=== PATIENT | male | born 1970 | race Caucasian/White ===

== ENCOUNTER 2022-04-28 18:02 | Emergency (ER) | payer OTHER, SELFPAY ==
--- NOTE | ~2022-04-28 | CT_ITS ---
EXAMINATION CTA CHEST, ABDOMEN AND PELVIS CLINICAL INFORMATION: Chest pain. Possible dissection. COMPARISON: None. TECHNIQUE: Multidetector volumetric CT imaging of the chest, abdomen and pelvis was obtained after the administration of 70 mL Omnipaque 350 without immediate adverse reactions. Coronal and sagittal reformats were reviewed. This CT examination was performed using dose optimization techniques as appropriate, variously including the following: *Automated exposure control *Adjustment of mA and/or kV according to patient size (this includes techniques or standardized protocols for targeted exams where dose is matched to indication/reason for exam; i.e. extremities or head) *Use of iterative reconstruction technique DLP: 756 mGy-cm FINDINGS: VASCULAR: Nongated exam. No thoracic or abdominal aortic aneurysm, or dissection. Ascending aorta measures 3.5 cm. Single bilateral renal arteries are patent. Celiac axis and its branches are patent. There is a dissection of the anterior superior mesenteric artery beginning approximately 8 mm from its origin, and extending over length of 4.2 cm, ending at the origin of the middle colic artery which remains patent. Jejunal branches to the small bowel ileocolic branches remain patent. Inferior mesenteric artery patent. Iliac and femoral vessels are patent. The exam was not timed for evaluation of the pulmonary arteries, however pulmonary embolism can be safely excluded as well. NONVASCULAR: CHEST: No acute pulmonary parenchymal abnormalities. Scattered calcified granulomata. No pleural effusion or pneumothorax. Normal heart size. No pericardial effusion. No mediastinal or hilar lymphadenopathy. Normal thyroid gland. Chest wall and axilla unremarkable. ABDOMEN/PELVIS: Liver, biliary tree, pancreas, spleen, and adrenal glands are normal. Kidneys enhance symmetrically. No hydronephrosis. There are bilateral simple renal cysts are benign. No follow-up required. Mild prostatomegaly. Seminal vesicles unremarkable. Pancolonic diverticulosis. No evidence of diverticulitis. Stomach and small bowel unremarkable. No lymphadenopathy. No free fluid/ascites. MUSCULOSKELETAL: No acute or suspicious osseous abnormalities. CT/CT angio abdomen pelvis IMPRESSION: * No aortic aneurysm or dissection. 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 No branch vessel occlusion.
[2022-04-28 18:10] VITALS: BP 151/112; PULSE 90; RESP 20; TEMP 36.7; O2SAT 98; BMI 27.1
--- NOTE | 2022-04-28 18:10 | ED_ITS ---
HPI - General Adult General Chief complaint: Abdominal Pain Stated complaint: Abdominal pain, back pain Time Seen by Provider: 04/28/22 18:28 Source: patient Mode of arrival: ambulatory Limitations: no limitations Related Data Allergies Allergy/AdvReac Type Severity Reaction Status Date / Time No Known Allergies Allergy Verified 04/28/22 18:10 [facility] Social History Social History Smoked in Last 30 Days: No Use of substances other than those prescribed or required for medical reasons: No Advance Directives: No Advance Directives Information Provided: No Physical Exam ED Vital Signs: Vital Signs - 24 hr 04/28/22 18:10 04/28/22 19:13 04/28/22 21:54 Temperature 98.0 F 97.9 F 97.8 F Pulse Rate 90 72 73 Respiratory Rate 20 24 H 11 L Blood Pressure 151/112 H 138/88 153/103 H Pulse Oximetry 98 99 98 Oxygen Delivery Method Room Air Room Air Room Air 04/28/22 22:42 04/28/22 22:57 Temperature 97.7 F Pulse Rate 83 Respiratory Rate 24 H 24 H Blood Pressure 153/103 H Pulse Oximetry 97 Oxygen Delivery Method Room Air BMI result Body Mass Index 27.1 Course Course Course Narrative: RME performed by Therese Collado PA-C. Patient is a 51 year old male presenting to the emergency department with sudden onset and severe epigastric pain radiating to his back. Patient states that he has a history of high blood pressure of which he is on multiple medications. Patient states the pain is getting worse and radiating into his back. Concern for dissection. CBC, CMP, PT, PTT, CTA chest and abd ordered. Patient brought back to the department. Patient acuity explained to the charge nurse. Patient seen and transferred to [facility] by Dr. Cantu Medications Administered Discontinued Medications Generic Name Dose Route Start Last Admin Trade Name Freq PRN Reason Stop Dose Admin Hydromorphone HCl 0.5 mg 04/28/22 18:59 04/28/22 19:09 Hydromorphone Hcl 0.5 Mg/0.5 Ml Syringe IVPUSH 04/28/22 19:00 0.5 mg ONCE ONE Administration Protocol Hydromorphone HCl 0.5 mg 04/28/22 20:37 04/28/22 20:49 Hydromorphone Hcl 0.5 Mg/0.5 Ml Syringe IVPUSH 04/28/22 20:38 0.5 mg ONCE ONE Administration Protocol Hydromorphone HCl 0.5 mg 04/28/22 22:36 04/28/22 22:42 Hydromorphone Hcl 0.5 Mg/0.5 Ml Syringe IVPUSH 04/28/22 22:37 0.5 mg ONCE ONE Administration Protocol Iohexol 100 ml 04/28/22 18:53 04/28/22 18:55 Iohexol 350 Mg/Ml 100 Ml Infus..Btl IV 04/28/22 18:54 100 ml ONCE ONE Administration Medical Decision Making Lab Data Result diagrams: 04/28/22 20:02 04/28/22 20:02 Labs: Lab Results 04/28/22 04/28/22 04/28/22 Range/Units 20:02 20:02 20:02 WBC 8.2 (4.8-10.8) X10*3/uL RBC 5.35 (4.60-5.80) X10*6/uL Hgb 15.4 (14.0-18.0) g/dl Hct 43.5 (42.0-52.0) % MCV 81.3 (80.0-98.0) fL MCH 28.8 (27.0-33.0) pg MCHC 35.4 (31.0-36.0) g/dl RDW 13.9 (11.0-16.0) % Plt Count 212 (160-400) X10*3/uL MPV 9.5 (9.4-12.4) fL Immature Gran % (Auto) 0.2 (0.0-0.4) % Neut % (Auto) 74.6 H (45-73) % Lymph % (Auto) 17.8 L (20-40) % [place] % (Auto) 5.1 (2-11) % Eos % (Auto) 1.8 (0-4) % Baso % (Auto) 0.5 (0-2) % Lymph # (Auto) 1.5 (1.2-4.9) X10*3/uL [place] # (Auto) 0.4 (0.1-1.2) X10*3/uL Eos # (Auto) 0.2 (0.0-0.4) X10*3/uL Baso # (Auto) 0.0 (0.0-0.2) X10*3/uL Abs Immat Gran (auto) 0.02 (0.00-0.03) X10*3/uL Absolute Neuts (auto) 6.1 (2.0-8.3) x10*3/uL Absolute Nucleated RBC 0.000 (0.0-0.012) X10*3/uL Nucleated RBC % (auto) 0.0 (0.0-0.2) /100WBC PT (10.0-13.1) SEC INR (0.9-1.1) APTT (26.0-36.4) SEC Sodium 129 L (135-145) mmol/L Potassium 3.5 (3.3-5.1) mmol/L Chloride 100 (96-108) mmol/L Carbon Dioxide 18 L (22-29) mmol/L Anion Gap 15 (12-20) BUN 19 H (9-16) mg/dL Creatinine 0.97 (0.5-1.4) mg/dL Estim Creat Clear Calc 99.5 Estimated GFR > 60 Random Glucose 104 (60-115) mg/dL Lactic Acid (0.5-2.0) mmol/L Calcium 9.6 (8.4-10.2) mg/dL Magnesium 2.1 (1.6-2.6) mg/dL Total Bilirubin 2.0 H (0.0-1.0) mg/dL AST 21 (5-37) U/L ALT 21 (0-40) U/L Alkaline Phosphatase 52 (39-117) U/L Troponin I High Sens < 3.5 (<3.5-35.0) ng/L Total Protein 9.0 H (6.5-8.0) g/dL Albumin 4.2 (3.5-5.0) g/dL 04/28/22 04/28/22 Range/Units 20:02 22:39 WBC (4.8-10.8) X10*3/uL RBC (4.60-5.80) X10*6/uL Hgb (14.0-18.0) g/dl Hct (42.0-52.0) % MCV (80.0-98.0) fL MCH (27.0-33.0) pg MCHC (31.0-36.0) g/dl RDW (11.0-16.0) % Plt Count (160-400) X10*3/uL MPV (9.4-12.4) fL Immature Gran % (Auto) (0.0-0.4) % Neut % (Auto) (45-73) % Lymph % (Auto) (20-40) % [place] % (Auto) (2-11) % Eos % (Auto) (0-4) % Baso % (Auto) (0-2) % Lymph # (Auto) (1.2-4.9) X10*3/uL [place] # (Auto) (0.1-1.2) X10*3/uL Eos # (Auto) (0.0-0.4) X10*3/uL Baso # (Auto) (0.0-0.2) X10*3/uL Abs Immat Gran (auto) (0.00-0.03) X10*3/uL Absolute Neuts (auto) (2.0-8.3) x10*3/uL Absolute Nucleated RBC (0.0-0.012) X10*3/uL Nucleated RBC % (auto) (0.0-0.2) /100WBC PT 12.6 (10.0-13.1) SEC INR 1.1 (0.9-1.1) APTT 26.9 (26.0-36.4) SEC Sodium (135-145) mmol/L Potassium (3.3-5.1) mmol/L Chloride (96-108) mmol/L Carbon Dioxide (22-29) mmol/L Anion Gap (12-20) BUN (9-16) mg/dL Creatinine (0.5-1.4) mg/dL Estim Creat Clear Calc Estimated GFR Random Glucose (60-115) mg/dL Lactic Acid 1.0 (0.5-2.0) mmol/L Calcium (8.4-10.2) mg/dL Magnesium (1.6-2.6) mg/dL Total Bilirubin (0.0-1.0) mg/dL AST (5-37) U/L ALT (0-40) U/L Alkaline Phosphatase (39-117) U/L Troponin I High Sens (<3.5-35.0) ng/L Total Protein (6.5-8.0) g/dL Albumin (3.5-5.0) g/dL Discharge Plan Discharge 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
--- NOTE | 2022-04-28 18:11 | ECG_ITS ---
Test Reason : EPIGASTRIC PAIN Blood Pressure : / mmHG Vent. Rate : 071 BPM Atrial Rate : 071 BPM P-R Int : 174 ms QRS Dur : 086 ms QT Int : 432 ms P-R-T Axes : 036 005 051 degrees QTc Int : 469 ms Normal sinus rhythm Normal ECG No previous ECGs available Referred By: Therese Collado Electronically Signed By:Deshawn Murphy
[2022-04-28] MEDS: iohexoL 350 MG/ML 100 ML INFUS..BTL IV (18:55)
--- NOTE | 2022-04-28 19:01 | ED_ITS ---
HPI - Abdominal Pain General Chief Complaint: Abdominal Pain Stated Complaint: Abdominal pain, back pain Time Seen by Provider: 04/28/22 18:28 Source: patient Mode of arrival: ambulatory Limitations: no limitations History of Present Illness HPI narrative: Patient is a 51-year-old male with a history hypertension. No history smoking. Positive history of kidney stones in the past. Presented today with having ri ght-sided abdominal pain going to the back. The pain is 10/10. Very sudden abrupt in onset. No history of sudden in the family. No history of smoking. Patient did not try any medication. Is not changed with movement. No pain on urination no change in bowel movement patient is from home. No coughing or congestion no chest pain no diaphoresis. The pain is not related to food. It is sharp. Related Data Allergies Allergy/AdvReac Type Severity Reaction Status Date / Time No Known Allergies Allergy Verified 04/28/22 18:10 Review of Systems Review of Systems Positive right-sided abdominal No fever no chills Yes all other systems are reviewed and are negative PMFSH Past Medical History Attestation statement: The following information was validated with the patient. Social History Social History Smoked in Last 30 Days: No Use of substances other than those prescribed or required for medical reasons: No Advance Directives: No Advance Directives Information Provided: No Physical Exam ED Vital Signs: Vital Signs - 24 hr 04/28/22 18:10 04/28/22 19:13 04/28/22 21:54 Temperature 98.0 F 97.9 F 97.8 F Pulse Rate 90 72 73 Respiratory Rate 20 24 H 11 L Blood Pressure 151/112 H 138/88 153/103 H Pulse Oximetry 98 99 98 Oxygen Delivery Method Room Air Room Air Room Air BMI result Body Mass Index 27.1 Appearance: Alert. Oriented X3. No acute distress. Eyes: Pupils equal, round and reactive to light. ENT: Pharynx normal. Neck: Normal inspection. Neck supple. No lymph nodes noted. No crepitus CVS: Normal heart rate and rhythm. Pulses normal. Normal S1 and S2 Respiratory: No respiratory distress. Breath sounds normal. No Wheezing. No rales Abdomen: Soft and nontender. No rigidity. No distention. good BS x4 Skin: Skin warm and dry. Normal skin color. Normal skin turgor. Extremities: No lower extremity edema. Neurovascular intact to all extremities. No Lacerations. No Rash Neuro: Oriented X 3. No motor deficit. No sensory deficit. Moving all extermities. No slurred speech Medications Administered Discontinued Medications Generic Name Dose Route Start Last Admin Trade Name Pandaq PRN Reason Stop Dose Admin Hydromorphone HCl 0.5 mg 04/28/22 18:59 04/28/22 19:09 Hydromorphone Hcl 0.5 Mg/0.5 Ml Syringe IVPUSH 04/28/22 19:00 0.5 mg ONCE ONE Administration Protocol Hydromorphone HCl 0.5 mg 04/28/22 20:37 04/28/22 20:49 Hydromorphone Hcl 0.5 Mg/0.5 Ml Syringe IVPUSH 04/28/22 20:38 0.5 mg ONCE ONE Administration Protocol Iohexol 100 ml 04/28/22 18:53 04/28/22 18:55 Iohexol 350 Mg/Ml 100 Ml Infus..Btl IV 04/28/22 18:54 100 ml ONCE ONE Administration MDM - Abdominal Pain MDM Narrative Medical decision making narrative: 19:55 Patient had sudden onset of excruciating abdominal pain. 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 The finding was discussed with vascular surgery Dr. Witt. Suggested patient require transfer to a tertiary center. Contacted [facility]. Awaiting call back. Patient's blood pressure is controlled. At 21:00 there was no reply from [facility] yet. Attempted to contact you mass. No capacity to take care patient. Will attempt to contact [facility]. At 22:30 poly got a phone call back from [facility]. They will accept the patient at this point. Will transfer patient to the Emergency Department. Accepting physician . Did not want any heparin at this time. Currently patient is in guarded condition given additional doses of pain medication. Differential Diagnosis Differential diagnosis: Likely abdominal pain, aortic dissection, acute appendicitis, bowel perforation, calculus of kidney, constipation, diverticulitis, endometriosis, gastroenteritis, gastritis, mesenteric ischemia, pancreatitis, peptic ulcer disease, renal colic and small bowel obstruction Medical Records Attestation: I reviewed the patient's medical records. Lab Data Attestation: I reviewed the patient's lab results. Result diagrams: 04/28/22 20:02 04/28/22 20:02 Labs: Lab Results 04/28/22 04/28/22 04/28/22 Range/Units 20:02 20:02 20:02 WBC 8.2 (4.8-10.8) X10*3/uL RBC 5.35 (4.60-5.80) X10*6/uL Hgb 15.4 (14.0-18.0) g/dl Hct 43.5 (42.0-52.0) % MCV 81.3 (80.0-98.0) fL MCH 28.8 (27.0-33.0) pg MCHC 35.4 (31.0-36.0) g/dl RDW 13.9 (11.0-16.0) % Plt Count 212 (160-400) X10*3/uL MPV 9.5 (9.4-12.4) fL Immature Gran % (Auto) 0.2 (0.0-0.4) % Neut % (Auto) 74.6 H (45-73) % Lymph % (Auto) 17.8 L (20-40) % [place] % (Auto) 5.1 (2-11) % Eos % (Auto) 1.8 (0-4) % Baso % (Auto) 0.5 (0-2) % Lymph # (Auto) 1.5 (1.2-4.9) X10*3/uL [place] # (Auto) 0.4 (0.1-1.2) X10*3/uL Eos # (Auto) 0.2 (0.0-0.4) X10*3/uL Baso # (Auto) 0.0 (0.0-0.2) X10*3/uL Abs Immat Gran (auto) 0.02 (0.00-0.03) X10*3/uL Absolute Neuts (auto) 6.1 (2.0-8.3) x10*3/uL Absolute Nucleated RBC 0.000 (0.0-0.012) X10*3/uL Nucleated RBC % (auto) 0.0 (0.0-0.2) /100WBC PT (10.0-13.1) SEC INR (0.9-1.1) APTT (26.0-36.4) SEC Sodium 129 L (135-145) mmol/L Potassium 3.5 (3.3-5.1) mmol/L Chloride 100 (96-108) mmol/L Carbon Dioxide 18 L (22-29) mmol/L Anion Gap 15 (12-20) BUN 19 H (9-16) mg/dL Creatinine 0.97 (0.5-1.4) mg/dL Estim Creat Clear Calc 99.5 Estimated GFR > 60 Random Glucose 104 (60-115) mg/dL Calcium 9.6 (8.4-10.2) mg/dL Magnesium 2.1 (1.6-2.6) mg/dL Total Bilirubin 2.0 H (0.0-1.0) mg/dL AST 21 (5-37) U/L ALT 21 (0-40) U/L Alkaline Phosphatase 52 (39-117) U/L Troponin I High Sens < 3.5 (<3.5-35.0) ng/L Total Protein 9.0 H (6.5-8.0) g/dL Albumin 4.2 (3.5-5.0) g/dL 04/28/22 Range/Units 20:02 WBC (4.8-10.8) X10*3/uL RBC (4.60-5.80) X10*6/uL Hgb (14.0-18.0) g/dl Hct (42.0-52.0) % MCV (80.0-98.0) fL MCH (27.0-33.0) pg MCHC (31.0-36.0) g/dl RDW (11.0-16.0) % Plt Count (160-400) X10*3/uL MPV (9.4-12.4) fL Immature Gran % (Auto) (0.0-0.4) % Neut % (Auto) (45-73) % Lymph % (Auto) (20-40) % [place] % (Auto) (2-11) % Eos % (Auto) (0-4) % Baso % (Auto) (0-2) % Lymph # (Auto) (1.2-4.9) X10*3/uL [place] # (Auto) (0.1-1.2) X10*3/uL Eos # (Auto) (0.0-0.4) X10*3/uL Baso # (Auto) (0.0-0.2) X10*3/uL Abs Immat Gran (auto) (0.00-0.03) X10*3/uL Absolute Neuts (auto) (2.0-8.3) x10*3/uL Absolute Nucleated RBC (0.0-0.012) X10*3/uL Nucleated RBC % (auto) (0.0-0.2) /100WBC PT 12.6 (10.0-13.1) SEC INR 1.1 (0.9-1.1) APTT 26.9 (26.0-36.4) SEC Sodium (135-145) mmol/L Potassium (3.3-5.1) mmol/L Chloride (96-108) mmol/L Carbon Dioxide (22-29) mmol/L Anion Gap (12-20) BUN (9-16) mg/dL Creatinine (0.5-1.4) mg/dL Estim Creat Clear Calc Estimated GFR Random Glucose (60-115) mg/dL Calcium (8.4-10.2) mg/dL Magnesium (1.6-2.6) mg/dL Total Bilirubin (0.0-1.0) mg/dL AST (5-37) U/L ALT (0-40) U/L Alkaline Phosphatase (39-117) U/L Troponin I High Sens (<3.5-35.0) ng/L Total Protein (6.5-8.0) g/dL Albumin (3.5-5.0) g/dL Critical Care Time Critical Care Time Critical Care Time: Yes Total Critical Care Time: 75 Attestation: I have personally provided 70 minutes of critical care time exclusive of time spent on separately billable procedures. Time includes review of lab data, radiology results, discussion with consultants, and monitoring for potential decompensation. 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
[2022-04-28] MEDS: HYDROmorphone HCl 0.5 MG/0.5 ML SYRINGE IVPUSH ×3 (19:09→22:42)
[2022-04-28 19:13] VITALS: BP 138/88; PULSE 72; RESP 24; TEMP 36.6; O2SAT 99
--- NOTE | 2022-04-28 19:17 | PC.NURSE ---
Pt's V/S are stable, pt is a having excruciating pain in the lower right abd radiating in to middle of the abd. pt is diaphoretic and appear in stress. Pt abd is soft and tender. Pt was given pain meds, will continue to monitor.
--- NOTE | 2022-04-28 19:54 | PC.NURSE ---
Call out to [facility] transfer line @[phone]
[2022-04-28 20:07] LABS: MANUAL DIFF FLAG NO
[2022-04-28 20:17] LABS: Basophils Percent Auto 0.5 % (0-2); Eosinophils Absolute Auto 0.2 X10*3/uL (0.0-0.4); Eosinophils Percent Auto 1.8 % (0-4); Hematocrit 43.5 % (42.0-52.0); Hemoglobin 15.4 g/dl (14.0-18.0); Imm Gran Abs Auto 0.02 X10*3/uL (0.00-0.03); Imm Gran Pct Auto 0.2 % (0.0-0.4); Lymphocytes Absolute Auto 1.5 X10*3/uL (1.2-4.9); Lymphocytes Percent Auto 17.8 % (20-40); Mean Corpuscular HGB Conc 35.4 g/dl (31.0-36.0); Mean Corpuscular Hemoglobin 28.8 pg (27.0-33.0); Mean Corpuscular Volume 81.3 fL (80.0-98.0); Mean Platelet Volume 9.5 fL (9.4-12.4); Monocytes Absolute Auto 0.4 X10*3/uL (0.1-1.2); Monocytes Percent Auto 5.1 % (2-11); Neutrophils Absolute Auto 6.1 x10*3/uL (2.0-8.3); Neutrophils Percent Auto 74.6 % (45-73); Platelet Count 212 X10*3/uL (160-400); Red Blood Count 5.35 X10*6/uL (4.60-5.80); Red Cell Distribution Width 13.9 % (11.0-16.0); White Blood Count 8.2 X10*3/uL (4.8-10.8)
[2022-04-28 20:27] LABS: INTERNATIONAL NORM RATIO 1.1 (0.9-1.1); Prothrombin Time 12.6 SEC (10.0-13.1)
[2022-04-28 20:29] LABS: Partial Thromboplastin Time 26.9 SEC (26.0-36.4)
[2022-04-28 20:41] LABS: Alanine Aminotransferase 21 U/L (0-40); Albumin Level 4.2 g/dL (3.5-5.0); Alkaline Phosphatase 52 U/L (39-117); Anion Gap 15 (12-20); Aspartate Amino Transferase 21 U/L (5-37); Blood Urea Nitrogen 19 mg/dL (9-16); Calcium 9.6 mg/dL (8.4-10.2); Carbon Dioxide 18 mmol/L (22-29); Chloride 100 mmol/L (96-108); Creatinine Clr Calc Pharmacy 99.5; Estimated Glomerular Filt Rate > 60; Glucose Random 104 mg/dL (60-115); Magnesium 2.1 mg/dL (1.6-2.6); Potassium 3.5 mmol/L (3.3-5.1); Sodium 129 mmol/L (135-145)
[2022-04-28 20:51] LABS: Troponin-I High Sensitivity < 3.5 ng/L (<3.5-35.0)
--- NOTE | 2022-04-28 20:57 | PC.NURSE ---
Call out to [facility] Transfer line @[phone]
[2022-04-28 21:54] VITALS: BP 153/103; PULSE 73; RESP 11; TEMP 36.6; O2SAT 98
[2022-04-28 22:42] VITALS: RESP 24
[2022-04-28 22:57] VITALS: BP 153/103; PULSE 83; RESP 24; TEMP 36.5; O2SAT 97
--- NOTE | 2022-04-28 23:18 | PC.NURSE ---
Pt was a/o x5, pt BP was elevated, afribile. Pt was on the monitor and it shows NSR. Pt had excruciating pain and nurse gave him Dilaudid upon the transferred to [facility]. Pt family was at bedside. This nurse gave report to nurse Berumen. Provider was aware of patient status.
== END 2022-04-28 23:27 | disposition short-term general hospital (02) ==
PROVIDERS: Physician Assistant Medical; Emergency Provider Emergency Medicine Emergency Medical Services
DX: I71.40 Abdominal aortic aneurysm, without rupture, unspecified (principal); M54.50 Low back pain, unspecified; R10.13 Epigastric pain; Z79.899 Other long term (current) drug therapy
CPT/HCPCS: 36415; 71275; 74174; 80053; 83605; 83735; 84484; 85025; 85610; 85730; 93005; 96374; 96376; 99285; J1170; Q9967